=== PATIENT | female | born 1990 | race Caucasian/White ===

== ENCOUNTER 2019-04-14 15:34 | Emergency (ER) | payer OTHER ==
[~2019-04-14] VITALS: Ht 167.6 cm; Wt 74.8 kg
--- OUTSIDE RECORDS SUMMARY | ~2019-04-14 | XMS ---
Demographics + + + | Address | [address] | | | [address] | | | [place] [address] | + + + | Preferred Language | Unknown | + + + | Marital Status | Unknown | + + + | Voodoo Affiliation | Unknown | + + + | Race | Unknown | + + + | Ethnic Group | Unknown | + + + Author + + + | Author | [facility] | + + + | Organization | [facility] | + + + | Address | [address] | | | [place] [address] | + + + | Phone | | + + + Care Team Providers + + + + | Care Pressroom Worker Name | Role | Phone | + + + + Unavailable | Unavailable | + + + + PROBLEMS + + + + + + + + | Type | Condition | ICD9-CM | [id number] | Onset | Condition | SNOMED | | | | Code | Code | Dates | Status | Code | + + + + + + + + | Problem | Back pain | 724.5 | | | Active | 074499462 | + + + + + + + + | Problem | Sprain of | 845.00 | | | Active | 86904531 | | | ankle NOS | | | | | | + + + + + + + + | Problem | SHOULDER | 726.2 | | | Active | 046900854 | | | REGION DIS | | | | | | | | NEC | | | | | | + + + + + + + + | Assessment | Mastitis | N61.0 | | 04 Apr, | Active | 21433609 | | | | | | 2017 | | | + + + + + + + + | Problem | Asthma | | J45.909 | | Active | 06728103 | | | with | | | | | | | | bronchitis | | | | | | + + + + + + + + | Problem | Asthma | 493.90 | | | Active | 299151924 | + + + + + + + + | Problem | Cephalgia | 784.0 | | | Active | 82837518 | + + + + + + + + | Problem | CELLULITIS | 682.9 | | | Active | 935998267 | | | NOS | | | | | | + + + + + + + + | Problem | Low back | 724.2 | | | Active | 824359702 | | | pain | | | | | | + + + + + + + + | Problem | Sciatica | 724.3 | | | Active | 37492191 | + + + + + + + + ALLERGIES + + + + +--------+ | Substance | Reaction | Event Type | Date | Status | + + + + +--------+ | metals | break outs | Non Drug | Aug, | Active | | | | Allergy | | | + + + + +--------+ SOCIAL HISTORY No smoking Hx information available PLAN OF CARE VITAL SIGNS + + + + | Height | 65 in | 2016-08-22 | + + + + | Weight | 193.3 lbs | 2016-08-22 | + + + + | BMI | 32.16 kg/m2 | 2016-08-22 | + + + + | Temperature | 97.6 degrees Fahrenheit | 2016-08-22 | + + + + | Heart Rate | 69 /min | 2016-08-22 | + + + + | Blood pressure systolic | 112 mm Hg | 2016-08-22 | + + + + | Blood pressure diastolic | 74 mm Hg | 2016-08-22 | + + + + MEDICATIONS + + + + + + + +--------+ | Medicati | Instruct | Dosage | Frequenc | Start | End Date | Duration | Status | | on | ions | | y | Date | | | | + + + + + + + +--------+ | Albutero | Inhalati | 2 puffs | | 27 Apr, | | 1 | Active | | l | on tid x | as | | 2014 | | dose(s) | | | Sulfate | 3 days | needed | | | | | | | HFA 108 | then tid | | | | | | | | (90 | prn | | | | | | | | Base) | | | | | | | | | MCG/ACT | | | | | | | | + + + + + + + +--------+ | Bactrim | Orally | 1 tablet | 12h | 04 Apr, | 14 Apr, | 10 | Active | | DS | bid | | | 2017 | 2017 | day(s) | | | 800-160 | | | | | | | | | MG | | | | | | | | + + + + + + + +--------+ | Suboxone | | | | | | | Active | + + + + + + + +--------+ | Gabapent | | | | | | | Active | | in | | | | | | | | + + + + + + + +--------+ RESULTS No Results PROCEDURES + + + + + | Procedure | Date Ordered | Related Diagnosis | Body Site | + + + + + | Est Level III | August 22, 2016 | | | | Intermediate | | | | + + + + + IMMUNIZATIONS No Known Immunizations"
--- OUTSIDE RECORDS SUMMARY | ~2019-04-14 | XMS ---
Demographics + + + | Address | [address] | | | [address] | | | [place] [address] | + + + | Preferred Language | Unknown | + + + | Marital Status | Unknown | + + + | Muslim Affiliation | Unknown | + + + | Race | Unknown | + + + | Ethnic Group | Unknown | + + + Author + + + | Author | [facility] | + + + | Organization | [facility] | + + + | Address | [address] | | | [place] [address] | + + + | Phone | | + + + Care Team Providers + + + + | Care Sail Maker Name | Role | Phone | + + + + Unavailable | Unavailable | + + + + PROBLEMS +---------+ + + +--------+ + + | Type | Condition | ICD9-CM | [id number] | Onset | Condition | SNOMED | | | | Code | Code | Dates | Status | Code | +---------+ + + +--------+ + + | Problem | Back pain | 724.5 | | | Active | [id number] | +---------+ + + +--------+ + + | Problem | Sprain of | 845.00 | | | Active | 22230813 | | | ankle NOS | | | | | | +---------+ + + +--------+ + + | Problem | SHOULDER | 726.2 | | | Active | 909547999 | | | REGION DIS | | | | | | | | NEC | | | | | | +---------+ + + +--------+ + + | Problem | Asthma | | J45.909 | | Active | 30875776 | | | with | | | | | | | | bronchitis | | | | | | +---------+ + + +--------+ + + | Problem | Asthma | 493.90 | | | Active | 284830831 | +---------+ + + +--------+ + + | Problem | Cephalgia | 784.0 | | | Active | 43768398 | +---------+ + + +--------+ + + | Problem | CELLULITIS | 682.9 | | | Active | 814363742 | | | NOS | | | | | | +---------+ + + +--------+ + + | Problem | Low back | 724.2 | | | Active | 805367333 | | | pain | | | | | | +---------+ + + +--------+ + + | Problem | Sciatica | 724.3 | | | Active | 96613738 | +---------+ + + +--------+ + + ALLERGIES + + + + +--------+ | Substance | Reaction | Event Type | Date | Status | + + + + +--------+ | metals | break outs | Non Drug | Dec, | Active | | | | Allergy | | | + + + + +--------+ SOCIAL HISTORY Never Assessed PLAN OF CARE + +---------+ | Activity | Details | + +---------+ +---+ | | +---+ + + + | Follow Up | prn Reason:null | + + + VITAL SIGNS + + + + | Height | 65 in | 2017-01-03 | + + + + | Weight | 186.6 lbs | 2017-01-03 | + + + + | BMI | 31.05 kg/m2 | 2017-01-03 | + + + + | Temperature | 98.5 degrees Fahrenheit | 2017-01-03 | + + + + | Heart Rate | 112 /min | 2017-01-03 | + + + + | Blood pressure systolic | 146 mm Hg | 2017-01-03 | + + + + | Blood pressure diastolic | 98 mm Hg | 2017-01-03 | + + + + MEDICATIONS + + + + +--------+ + +--------+ | Medicati | Instruct | Dosage | Frequenc | Start | End Date | Duration | Status | | on | ions | | y | Date | | | | + + + + +--------+ + +--------+ | NuvaRing | | 1 ring | | | | | Active | | | | | | | | | | | 0.12-0.0 | | | | | | | | | 15 | | | | | | | | | MG/24HR | | | | | | | | + + + + +--------+ + +--------+ | Cymbalta | Orally | 1 | 24h | | | 30 | Active | | 60 MG | Once a | capsule | | | | | | | | day | | | | | | | + + + + +--------+ + +--------+ | Suboxone | Sublingu | 1 | 12h | | | | Active | | 8-2 MG | al twice | applicat | | | | | | | | a day | ion | | | | | | | | | under | | | | | | | | | the | | | | | | | | | tongue | | | | | | | | | and | | | | | | | | | allow to | | | | | | | | | | | | | | | | | | dissolve | | | | | | + + + + +--------+ + +--------+ | Gabapent | Orally | 2 | 8h | | | 30 | Active | | in 300 | Three | Capsules | | | | | | | MG | times a | | | | | | | | | day | | | | | | | + + + + +--------+ + +--------+ RESULTS + +--------+ + + | Name | Result | Date | Reference Range | + +--------+ + + | Sedimentation | | 2017-01-03 | | | Rate-Westergren | | | | + +--------+ + + | Sedimentation | | | | | Rate-Westergren | | | | + +--------+ + + | Comp. Metabolic | | 2017-01-03 | | | Panel (14) | | | | + +--------+ + + | Calcium, Serum | | | | + +--------+ + + | Glucose, Serum | | | | + +--------+ + + | BUN | | | | + +--------+ + + | Protein, Total, | | | | | Serum | | | | + +--------+ + + | Albumin, Serum | | | | + +--------+ + + | Bilirubin, Total | | | | + +--------+ + + | Alkaline | | | | | Phosphatase, S | | | | + +--------+ + + | AST (SGOT) | | | | + +--------+ + + | Potassium, Serum | | | | + +--------+ + + | Sodium, Serum | | | | + +--------+ + + | Chloride, Serum | | | | + +--------+ + + | Creatinine, Serum | | | | + +--------+ + + | ALT (SGPT) | | | | + +--------+ + + | Carbon Dioxide, | | | | | Total | | | | + +--------+ + + | BUN/Creatinine | | | | | Ratio | | | | + +--------+ + + | Globulin, Total | | | | + +--------+ + + | A/G Ratio | | | | + +--------+ + + | TSH, 3rd Generation | | 2017-01-03 | | + +--------+ + + | TSH, 3RD GENERATION | | | | + +--------+ + + | CBC | | 2017-01-03 | | + +--------+ + + | WBC | | | | + +--------+ + + | RBC | | | | + +--------+ + + | HEMOGLOBIN | | | | + +--------+ + + | HEMATOCRIT | | | | + +--------+ + + | MCV | | | | + +--------+ + + | MCH | | | | + +--------+ + + | MCHC | | | | + +--------+ + + | RDW | | | | + +--------+ + + | LYMPHOCYTES | | | | + +--------+ + + | NEUTROPHILS | | | | + +--------+ + + | BANDS | | | | + +--------+ + + | MONOCYTES | | | | + +--------+ + + | EOSINOPHILS | | | | + +--------+ + + | BASOPHILS | | | | + +--------+ + + | OTHER | | | | + +--------+ + + | PLATELET COUNT | | | | + +--------+ + + | Neurontin Level | | 2017-01-03 | | + +--------+ + + PROCEDURES No Known procedures IMMUNIZATIONS No Known Immunizations MEDICAL (GENERAL) HISTORY + + +------+ | Type | Description | Date | + + +------+ | Medical History | generally healthy | | + + +------+ | Medical History | post depression | | + + +------+ | Medical History | 12/20/2011 - collapsing right | | | | ovarian cyst. | | + + +------+ | Medical History | depression | | + + +------+ | Surgical History | tonsillectomy | | + + +------+ | Surgical History | adenoidectomy | | + + +------+ | Surgical History | hand surgery | | + + +------+ | Surgical History | tube in ears | | + + +------+ | Surgical History | appendectomy | | + + +------+ | Surgical History | gall bladder | | + + +------+ | Surgical History | D and C | | + + +------+ | Surgical History | c section | 2016 | + + +------+ | Surgical History | tubal ligation | 2016 | + + +------+"
--- OUTSIDE RECORDS SUMMARY | ~2019-04-14 | XMS | Encounter Summary ---
Demographics + + + | Address | [address] | | | [place] [address] | + + + | Home Phone | | + + + | Preferred Language | Unknown | + + + | Marital Status | Single | + + + | Hindu Affiliation | Unknown | + + + | Race | Unknown | + + + | Ethnic Group | Unknown | + + + Author + + + | Author | [facility] | | | and [place] | + + + | Organization | [facility] | | | and [place] | + + + | Address | Unknown | + + + | Phone | Unavailable | + + + Support + + + + + | Name | Relationship | Address | Phone | + + + + + | Florencio Lowry | ECON | [address] | | | | | [address], [place] | | | | | [address] | | + + + + + | Jose Luis Dent | ECON | [address] | | | | | [place], | | | | | [place] [address] | | + + + + + Care Team Providers + +------+ + | Care Tunnel Mucker Name | Role | Phone | + +------+ + PCP | Unavailable | + +------+ + Encounter Details +--------+ + + + + | Date | Type | Department | Care Team | Description | +--------+ + + + + | 05/13/ | Hospital | [facility] | Hallie Doan | | | 2012 | Encounter | [facility] | Sarika Sharma MD [address] | | | | | CENTER [address] | [facility] | | | | | [place], [place] | [place] [address] | | | | | [address] | [phone] | | | | | [phone] | Maria L Deng | | | | | | DO [facility] TE | | | | | | [place], [place] | | | | | | [phone] | | | | | | | | +--------+ + + + + Social History + +-------+ +--------+------+ | Tobacco Use | Types | Packs/Day | Years | Date | | | | | Used | | + +-------+ +--------+------+ | Never Assessed | | | | | + +-------+ +--------+------+ + + + | Sex Assigned at | Date Recorded | | | | + + + | Not on file | | + + + + + + + | Job Start Date | Occupation | Industry | + + + + | Not on file | Not on file | Not on file | + + + + + + + + | Travel History | Travel Start | Travel End | + + + + + + | No recent travel history available. | + + documented as of this encounter Plan of Treatment Not on filedocumented as of this encounter Procedures + +--------+ + + + | Procedure Name | Priori | Date/Time | Associated Diagnosis | Comments | | | ty | | | | + +--------+ + + + | US OB < 14 WEEKS W | Routin | 05/14/2013 | | Results for this | | TRANSVAGINAL | e | 9:50 AM | | procedure are in the | | | | PST | | results section. | + +--------+ + + + | ABO RH | Routin | 05/13/2013 | | Results for this | | | e | 6:46 PM | | procedure are in the | | | | PST | | results section. | + +--------+ + + + | CBC WITH | Routin | 05/13/2013 | | Results for this | | DIFFERENTIAL | e | 6:46 PM | | procedure are in the | | | | PST | | results section. | + +--------+ + + + | HCG, SERUM, QUANT | Routin | 05/13/2013 | | Results for this | | | e | 6:46 PM | | procedure are in the | | | | PST | | results section. | + +--------+ + + + documented in this encounter Results US OB < 14 Weeks W Transvaginal (05/14/2013 9:50 AM PST) + + | Specimen | + + | | + + + + + | Narrative | Performed At | + + + | [facility] | [place] | | Department [address] [place] | [facility] | | [ rep [address]] [ rep [facility] | | st zip] Signed | - IMAGING | | | | | Patient Name: OLYFRED BROWNING Physician: | | | CHATA : 1990 Age: 22 Sex: F Unit #: [id number] | | | Exam Date: 05/13/13 Location: ER | | | Report #: [id number] Page: | | | %(RAD)RES..mtdd.print.filter("pg") of %(RAD) | | | RES..mtdd.print.filter("tpg") | | | | | | Accession Number: [id number] | | | OB ULTRASOUND, 05/14/2013 CLINICAL HISTORY: EVALUATE FOR | | | ECTOPIC , SPOTTING, CRAMPING, CLOTS. COMPARISON: | | | None. PROTOCOL: Grayscale and Doppler images of the | | | pelvis with transabdominal and transvaginal imaging. | | | FINDINGS: By dates, the gestational age is 6 weeks, 0 days. | | | The uterus measures 9.6 x 5.2 x 4.8 cm. Parenchyma is normal. | | | Within the uterus, an apparent twin gestation is present. A | | | smaller, inferior sac is observed that demonstrates a mildly irregular | | | contour without a definite decidual sac sign. A yolk sac is | | | observed. More superiorly is a more normal appearing gestational | | | sac with yolk sac observed. There are a small amount of blood products | | | around the more inferior sac. The more superior sac | | | measures 0.68 cm, which would correspond a mean age of 5 weeks, | | | 2 days. A small yolk sac is present that measures around 0.1 cm. | | | No definite amnion is seen. pole is not clearly identified | | | at this time and could be too early. For the smaller | | | more inferior sac, mean sac diameter is 0.40 cm, which would | | | correspond to a mean age of 4 weeks, 6 days. A yolk sac is | | | observed. No definite amnion is seen. No pole is | | | identified and could be too early. The right ovary is 3.1 | | | x 2.1 x 2.6 cm. There is a hypoechoic vascular rimmed round | | | structure that likely represents a corpus luteum. The | | | left ovary is 1.9 x 2.7 x 1.6 cm and appears normal. | | | There is a mild amount of simple free fluid within the cul-de-sac. | | | IMPRESSION: 1. APPARENT TWIN GESTATION WITH A | | | SMALLER SOMEWHAT IRREGULAR SAC AND A MORE SUPERIOR, MORE NORMAL | | | APPEARING SAC. YOLK SACS ARE IDENTIFIED WITHIN BOTH GESTATIONAL | | | SACS. HOWEVER, NO POLES ARE IDENTIFIED ON THE CURRENT | | | EXAMINATION. THIS COULD BE TOO EARLY, AND FOLLOWUP ULTRASOUND | | | IMAGING IS RECOMMENDED. AVERAGE ULTRASOUND AGE FOR THE LARGER SAC | | | IS 5 WEEKS, 2 DAYS AND FOR THE SMALLER SAC IS 4 WEEKS, 6 DAYS. | | | 2. CORPUS LUTEUM OF RIGHT OVARY. COMMENT: A | | | preliminary report was sent to the ER by the park guide. | | | Dictated Date/Time: 05/14/2013 09:50 Transcribed Date/Time: | | | 05/14/2013 10:54 Salvage Machine Operator: | | | <<Signature on File>> | | | Brandon | | | MD David05/14/13 [id number] <Electronically signed by Brandon Hernandez MD> | | | Brandon Hernandez MD 05/14/13 [id number] Salvage Machine Operator: Webjuanax | | | Gyeenrcypyetu65/25/13 1054 | | + + + + + + + + | Performing | Address | City/State/Zipcode | Phone Number | | Organization | | | | + + + + + | [facility] | [address] | [place] | [phone] | | [facility] | | [address] | | | - IMAGING | | | | + + + + + CBC with Differential (05/13/2013 6:46 PM PST) + + + + + + | Component | Value | Ref Range | Performed | Pathologist | | | | | At | Signature | + + + + + + | MANUAL | NO | | [facility] | | | [facility] | | [facility] | | | [facility] ? | | | [facility] | | | | | | CENTER - | | | | | | LABORATORY | | + + + + + + | WBC | 8.6 | 4.0 - 11.0 K/uL | [facility] | | | | | | [facility] | | | | | | MEDICAL | | | | | | CENTER - | | | | | | LABORATORY | | + + + + + + | RBC | 4.44 | 3.70 - 5.20 | [facility] | | | | | M/uL | [facility] | | | | | | MEDICAL | | | | | | CENTER - | | | | | | LABORATORY | | + + + + + + | Hemoglobin | 14.5 | 11.5 - 16.0 | [facility] | | | | | gm/dL | [facility] | | | | | | MEDICAL | | | | | | CENTER - | | | | | | LABORATORY | | + + + + + + | Hematocrit | 42.4 | 34.0 - 47.0 % | [facility] | | | | | | [facility] | | | | | | MEDICAL | | | | | | CENTER - | | | | | | LABORATORY | | + + + + + + | MCV | 95.4 | 83.0 - 101.0 fL | [facility] | | | | | | [facility] | | | | | | MEDICAL | | | | | | CENTER - | | | | | | LABORATORY | | + + + + + + | MCH | 32.7 | 28.0 - 35.0 pg | [facility] | | | | | | [facility] | | | | | | MEDICAL | | | | | | CENTER - | | | | | | LABORATORY | | + + + + + + | MCHC | 34.3 | 32.0 - 36.0 | [facility] | | | | | g/dL | [facility] | | | | | | MEDICAL | | | | | | CENTER - | | | | | | LABORATORY | | + + + + + + | RDW-CV | 11.8 | <15.0 % | [facility] | | | | | | [facility] | | | | | | MEDICAL | | | | | | CENTER - | | | | | | LABORATORY | | + + + + + + | Platelet | 231 | 140 - 440 K/uL | [facility] | | | Count | | | [facility] | | | | | | MEDICAL | | | | | | CENTER - | | | | | | LABORATORY | | + + + + + + | % | 78.1 | 45 - 82 % | [facility] | | | Neutrophils | | | [facility] | | | | | | MEDICAL | | | | | | CENTER - | | | | | | LABORATORY | | + + + + + + | % | 19.6 (L) | 20 - 45 % | [facility] | | | Lymphocytes | | | [facility] | | | | | | MEDICAL | | | | | | CENTER - | | | | | | LABORATORY | | + + + + + + | % Monocytes | 2.3 (L) | 4 - 12 % | [facility] | | | | | | [facility] | | | | | | MEDICAL | | | | | | CENTER - | | | | | | LABORATORY | | + + + + + + | Absolute | 6.7 | 1.8 - 8.5 K/uL | [facility] | | | Neutrophils | | | [facility] | | | | | | MEDICAL | | | | | | CENTER - | | | | | | LABORATORY | | + + + + + + | Absolute | 1.7 | 0.6 - 3.2 K/uL | [facility] | | | Lymphocytes | | | [facility] | | | | | | MEDICAL | | | | | | CENTER - | | | | | | LABORATORY | | + + + + + + | Absolute | 0.2 | 0.0 - 1.0 K/uL | [facility] | | | Monocytes | | | [facility] | | | | | | MEDICAL | | | | | | CENTER - | | | | | | LABORATORY | | + + + + + + + + | Specimen | + + | | + + + + + + + | Performing | Address | City/State/Zipcode | Phone Number | | Organization | | | | + + + + + | [facility] | [address] | [place] | [phone] | | [facility] | | [address] | | | - LABORATORY | | | | + + + + + | [facility] | [address] | [place], [place] | | | [facility] | | [address] | | | - LABORATORY | | | | + + + + + ABO Rh (05/13/2013 6:46 PM PST) + +-------+ + + + | Component | Value | Ref Range | Performed | Pathologist | | | | | At | Signature | + +-------+ + + + | ABO | OP | | [facility] | | | | | | [facility] | | | | | | MEDICAL | | | | | | CENTER - | | | | | | LABORATORY | | + +-------+ + + + + + | Specimen | + + | | + + + + + + + | Performing | Address | City/State/Zipcode | Phone Number | | Organization | | | | + + + + + | [facility] | [address] | [place], [place] | [phone] | | [facility] | | [address] | | | - LABORATORY | | | | + + + + + | [facility] | [address] | [place], [place] | | | [facility] | | [address] | | | - LABORATORY | | | | + + + + + HCG, Serum, Quant (05/13/2013 6:46 PM PST) + + + + + + | Component | Value | Ref Range | Performed | Pathologist | | | | | At | Signature | + + + + + + | hCG Quant, | 6,026 (H)Comment: This | <0.5 - 5.0 | [facility] | | | Serum | value is calculated from | mIU/mL | [facility] | | | | a diluted sample, | | MEDICAL | | | | allowing measurement | | CENTER - | | | | within the linearity of | | LABORATORY | | | | the assay.[facility] | | | | | | RANGE: NON- | | | | | | FEMALE <0.5-5.0 mIU/mL | | | | | | | | | | | | | | | | | | B-hCG | | | | | | LEVEL | | | | | | Gestational Age | | | | | | Expected hCG Values | | | | | | | | | | | | | | | | | | | | | | | | | | | | | | 0.2-1 week | | | | | | 5-50 | | | | | | mIU/mL | | | | | | 1-2 weeks | | | | | | | | | | | | 50-500 mIU/mL | | | | | | 2-3 | | | | | | weeks | | | | | | 100-5,000 mIU/mL | | | | | | 3-4 | | | | | | weeks | | | | | | 500-10,000 mIU/mL | | | | | | 4-5 | | | | | | weeks | | | | | | 1,000-50,000 mIU/mL | | | | | | | | | | | | 5-6 weeks | | | | | | 10,000-100,000 mIU/mL | | | | | | | | | | | | 6-8 weeks | | | | | | 15,000-200,000 mIU/mL | | | | | | | | | | | | 2-3 months | | | | | | 10,000-100,000 mIU/mL | | | | | | Testing performed on | | | | | | the Spiration | | | | | | Access Analyzer. | | | | + + + + + + + + | Specimen | + + | | + + + + + + + | Performing | Address | City/State/Zipcode | Phone Number | | Organization | | | | + + + + + | [facility] | [address] | [place] | [phone] | | [facility] | | [address] | | | - LABORATORY | | | | + + + + + | [facility] | [address] | [place] | | | [facility] | | [address] | | | - LABORATORY | | | | + + + + + documented in this encounter Visit Diagnoses Not on filedocumented in this encounter
--- OUTSIDE RECORDS SUMMARY | ~2019-04-14 | XMS | Clinical Summary ---
Demographics + + + | Address | [address] | | | [place] [address] | + + + | Home Phone | | + + + | Preferred Language | Unknown | + + + | Marital Status | Single | + + + | Yarsanism Affiliation | Unknown | + + + | Race | Unknown | + + + | Ethnic Group | Unknown | + + + Author + + + | Author | [facility] | | | and [place] | + + + | Organization | [facility] | | | and [place] | + + + | Address | Unknown | + + + | Phone | Unavailable | + + + Support + + + + + | Name | Relationship | Address | Phone | + + + + + | Florencio Lowry | ECON | [address] | | | | | [address], [place] | | | | | [address] | | + + + + + | Jose Luis Dent | ECON | [address] | | | | | [place], | | | | | [place] [address] | | + + + + + Care Team Providers + +------+ + | Care Rn Informatics Name | Role | Phone | + +------+ + PCP | Unavailable | + +------+ + Allergies Not on File Medications Not on file Active Problems Not on file Social History + +-------+ +--------+------+ | Tobacco [...] recent travel history available. | + + Last Filed Vital Signs Not on file Plan of Treatment + + + + + | Health Maintenance | Due Date | Last Done | Comments | + + + + + | Vaccine: | | | | | Dtap/Tdap/Td (1 - | 1 | | | | Tdap) | | | | + + + + + | Cervical Cancer | | | | | Screening (Pap) | 3 | | | + + + + + | Vaccine: Influenza | | | | | (#1) | 9 | | | + + + + + Results Not on filefrom Last 3 Months Insurance + +--------+ +--------+ +---------+--------+ | Payer | Benefi | Subscriber | Effect | Phone | Address | Type | | | t Plan | ID | [employer] | | | | | | / | | Dates | | | | | | Group | | | | | | + +--------+ +--------+ +---------+--------+ | [employer] | [employer] | [id number] | 05/13/ | [phone] | | [employer] | | MEDICAID HMO | HEALTH | | 2013-P | 1 | | id | | | MDCD | | resent | | | | | | [place] | | | | | | + +--------+ +--------+ +---------+--------+ + +--------+ +--------+ + + | Guarantor Name | Accoun | Relation to | Date | Phone | Billing Address | | | t Type | Patient | of | | | | | | | | | | + +--------+ +--------+ + + | Yessica Dent | Person | Self | [birth year] | [address] | | | al/[place] | | 1991 | [phone] | [address] [place], | | | [place] | | | [address] (Home) | [place] [address] | + +--------+ +--------+ + +"
--- OUTSIDE RECORDS SUMMARY | ~2019-04-14 | XMS ---
Demographics + + + | Address | [address] | | [address] | | | [place] [address] | + + + | Preferred Language | Unknown | + + + | Marital Status | Unknown | + + + | Yazdanism Affiliation | Unknown | + + + | Race | Unknown | + + + | Ethnic Group | Unknown | + + + Author + + + | Author | [facility] | + + + | Organization | [facility] | + + + | Address | [address] | | | [place] [address] | + + + | Phone | | + + + Care Team Providers + + + + | Care Live Ammunition Inspector Name | Role | Phone | + + + + Unavailable | Unavailable | + + + + PROBLEMS +---------+ + + +--------+ + + | Type | Condition | ICD9-CM | [id number] | Onset | Condition | SNOMED | | | | Code | Code | Dates | Status | Code | +---------+ + + +--------+ + + | Problem | Back pain | 724.5 | | | Active | 680217656 | +---------+ + + +--------+ + + | Problem | Sprain of | 845.00 | | | Active | 32302258 | | | ankle NOS | | | | | | +---------+ + + +--------+ + + | Problem | SHOULDER | 726.2 | | | Active | [id number] | | | REGION DIS | | | | | | | | NEC | | | | | | +---------+ + + +--------+ + + | Problem | Asthma | | J45.909 | | Active | 63367459 | | | with | | | | | | | | bronchitis | | | | | | +---------+ + + +--------+ + + | Problem | Asthma | 493.90 | | | Active | 714356659 | +---------+ + + +--------+ + + | Problem | Cephalgia | 784.0 | | | Active | 93339341 | +---------+ + + +--------+ + + | Problem | CELLULITIS | 682.9 | | | Active | 706847638 | | | NOS | | | | | | +---------+ + + +--------+ + + | Problem | Low back | 724.2 | | | Active | 047679373 | | | pain | | | | | | +---------+ + + +--------+ + + | Problem | Sciatica | 724.3 | | | Active | 78206577 | +---------+ + + +--------+ + + ALLERGIES Unknown Allergies SOCIAL HISTORY No smoking Hx information available PLAN OF CARE VITAL SIGNS MEDICATIONS Unknown Medications RESULTS No Results PROCEDURES No Known procedures IMMUNIZATIONS No Known Immunizations"
--- OUTSIDE RECORDS SUMMARY | ~2019-04-14 | XMS | Encounter Summary ---
Demographics + + + | Address | [address] | | | [place] [address] | + + + | Home Phone | | + + + | Preferred Language | Unknown | + + + | Marital Status | Single | + + + | Jehovah'S Witness Affiliation | Unknown | + + + | Race | Unknown | + + + | Ethnic Group | Unknown | + + + Author + + + | Author | [facility] | | | and [place] | + + + | Organization | [facility] | | | and [...] [address], [place] | | | | | [address] | | + + + + + | Jose Luis Dent | ECON | [address] | | | | | [place], | | | | | [place] [address] | | + + + + + Care Team Providers + +------+ + | Care Bead Forming Machine Set Up Operator Name | Role | Phone | + +------+ + PCP | Unavailable | + +------+ + Encounter Details +--------+ + + + + | Date | Type | Department | Care Team | Description | +--------+ + + + + | 05/13/ | Hospital | [facility] | Hallie Doan | | | 2012 | Encounter | MED [facility] EM[facility]ENCY | Sarika Sharma MD [address] | | | | | CENTER [address] | [facility] | | | | | [place], [place] | [place] [address] | | | | | [address] | [phone] | | | | | [phone] | Maria L Deng | | | | | | DO [facility] TE | | | | | | [place], [place] | | | | | | [phone] | | | | | | | [...] Performed At | + + + | [facility] | [place] | | Department [address] | [facility] | | [ rep [address]] [ rep [facility] | | st zip] Signed | - IMAGING | | | | | Patient Name: OLYFRED BROWNING Physician: | | | CHATA : 1990 Age: 22 Sex: F Unit #: [id number] | | | Exam Date: 05/13/13 Location: ER | | | Report #: [id number] Page: | | | %(RAD)RES..mtdd.print.filter("pg") of %(RAD) | | | RES..mtdd.print.filter("tpg") | | | | | | Accession Number: [id number] | | | OB ULTRASOUND, 05/14/2013 CLINICAL [...] was sent to the ER by the patent agent. | | | Dictated Date/Time: 05/14/2013 09:50 Transcribed Date/Time: | | | 05/14/2013 10:54 Incinerator Plant General Supervisor: | | | <<Signature on File>> | | | Brandon | | | MD David05/14/13 2914 <Electronically signed by Brandon Hernandez MD> | | | Brandon Hernandez MD 05/14/13 8030 Incinerator Plant General Supervisor: Webjuanax | | | Gntrffnijrega92/25/13 1054 | | + + + + + + + + | Performing | Address | City/State/Zipcode | Phone Number | | Organization | | | | + + + + + | [facility] | [address] | [place] | [phone] | | [facility] | | [address] | | | - IMAGING | | [...] | | Monocytes | | | [facility] | | [address] | [place] | [phone] | | [facility] | | [address] | | | - LABORATORY | | | | + + + + + | [facility] | [address] | [place], [place] | | | [facility] | | [address] | | | - LABORATORY | | [...] + | [facility] | [address] | [place], [place] | [phone] | | [facility] | | [address] | | | - LABORATORY | | | | + + + + + | [facility] | [address] | [place], [place] | | | [facility] | | [address] | | | - LABORATORY | | [...] | | | | | | the [place] | | | | | | Access Analyzer. | | | | + + + + + + + + | Specimen | + + | | + + + + + + + | Performing | Address | City/State/Zipcode | Phone Number | | Organization | | | | + + + + + | [facility] | [address] | [place] | [phone] | | [facility] | | [address] | | | - LABORATORY | | | | + + + + + | [facility] | [address] | [place] | | | [facility] | | [address] | | | - LABORATORY | | | | + + + + + documented in this encounter Visit Diagnoses Not on filedocumented in this encounter
--- OUTSIDE RECORDS SUMMARY | ~2019-04-14 | XMS | Clinical Summary ---
Demographics + + + | Address | [address] | | | [place] [address] | + + + | Home Phone | | + + + | Preferred Language | Unknown | + + + | Marital Status | Single | + + + | Advent Affiliation | Unknown | + + + | Race | Unknown | + + + | Ethnic Group | Unknown | + + + Author + + + | Author | [facility] | | | and [place] | + + + | Organization | [facility] | | | [...] [address], [place] | | | | | [address] | | + + + + + | Jose Luis Detn | ECON | [address] | | | | | [place], | | | | | [place] [address] | | + + + + + Care Team Providers + +------+ + | Care Clinical Research Nurse Name | Role | Phone | + [...] | [employer] | [employer] | [id number] | 05/13/ | [phone] | | [employer] | | MEDICAID HMO [...] | | | [address] (Home) | [place] [address] | + +--------+ +--------+ + +"
[~2019-04-14 15:34] MED LIST: ANAFRANIL25 MG PO; GABAPENTIN300 MG PO; MOBIC7.5 MG PO; NIFEDICAL XL30 MG PO; NORCO 5-325 TA1 EACH PO; OXYCODONE-ACET1 EAC1 PO; PNV PRENATAL P1 EACH PO; TRAMADOL HCL50 MG PO; TYLENOL EXTRA500 MG PO; TYLENOL325 MG PO; ULTRAM50 MG PO; VICODIN ES 7.51 EAC1 PO; VITAMIN D1000 UNI1 PO; ZANTAC 7575 MG; ZOFRAN ODT4 MG PO
[2019-04-14] MEDS ORDERED: BACTRIM DS TAB1 EACH PO ×2 (15:50→17:05)
[2019-04-14] MEDS ORDERED: AUGMENTIN 875-1 EACH PO (17:03)
== END 2019-04-14 17:18 | disposition home or self-care (01) ==
LOC: ED 15:34
DX: L03.311 Cellulitis of abdominal wall (principal); F17.200 Nicotine dependence, unspecified, uncomplicated
CPT/HCPCS: 99283-25

== ENCOUNTER 2020-06-22 13:24 | Emergency (ER) | payer OTHER ==
[~2020-06-22] VITALS: Ht 165.1 cm; Wt 78.9 kg
[~2020-06-22 13:24] MED LIST changes: +AUGMENTIN 875-1 EACH PO; +BACTRIM DS TAB1 EACH PO
[2020-06-22] MEDS ORDERED: CEPHALEXIN500 MG PO (14:21)
[2020-06-22] MEDS ORDERED: NAPROSYN500 MG PO (14:21)
== END 2020-06-22 14:45 | disposition home or self-care (01) ==
LOC: ED 13:24
DX: S61.412A Laceration without foreign body of left hand, initial encounter (principal); W26.8XXA Contact with other sharp object(s), not elsewhere classified, initial encounter; F17.200 Nicotine dependence, unspecified, uncomplicated
CPT/HCPCS: 12044; 99282-25

== ENCOUNTER 2020-12-02 15:28 | Emergency (ER) | payer OTHER ==
[~2020-12-02] VITALS: Ht 165.1 cm; Wt 69.4 kg
[~2020-12-02 15:28] MED LIST changes: +CEPHALEXIN500 MG PO; +NAPROSYN500 MG PO
--- OUTSIDE RECORDS SUMMARY | 2020-12-02 15:30 | XMS ---
PreManage Notification: FRED MARTINEZ Security Diamond Picker Events No recent Security Events currently on file [facility] There are no care providers on record at this time. Loco has no Care Guidelines for this patient. Ramona VISIT COUNT (12 MO.) 2 ZENIA Allen TOTAL 2 NOTE: Visits indicate total known visits. ED/UCC VISIT TRACKING (12 MO.) 12/02/2020 15:29 [facility] [place] TYPE: Emergency COMPLAINT: - POSS HEAT STROKE 06/22/2020 13:24 [facility] [place] TYPE: Emergency COMPLAINT: - L HAND LACERATION DIAGNOSES: - Laceration without foreign body of left hand, initial encounter - Nicotine dependence, unspecified, uncomplicated - Contact with other sharp object(s), not elsewhere classified, initial encounter INPATIENT VISIT TRACKING (12 MO.) No inpatient visits to display in this time frame [id number]
[2020-12-02] MEDS ORDERED: BUPRENORPHIN-N1 EACH SL (15:50)
[2020-12-02] MEDS ORDERED: ALPRAZOLAM1 MG PO (15:51)
[2020-12-02] MEDS ORDERED: ONDANSETRON ODT4 MG PO (18:31)
--- NOTE | 2020-12-03 07:11 | EKG ---
[facility] [address] [facility] [place], [place] [address] Signed Normal sinus rhythm Normal ECG No previous ECGs available Confirmed by MARIAJOSE THIBODEAUX MD ([id number]) on 12/03/2020 7:10:49 AM Electronically Signed By: MARIAJOSE THIBODEAUX MD 12/03/20 0711 PATIENT NAME: FRED MARTINEZ Electrocardiogram DATE OF : [birth year] PHYSICIAN: MARIAJOSE THIBODEAUX MD REPORT #: [id number] REPORT IS CONFIDENTIAL AND NOT TO BE RELEASED WITHOUT AUTHORIZATION
== END 2020-12-02 19:09 | disposition home or self-care (01) ==
LOC: ED 15:28
DX: R11.2 Nausea with vomiting, unspecified (principal); F17.200 Nicotine dependence, unspecified, uncomplicated
CPT/HCPCS: 80053; 85025; 93005; 93010; 99284-25; J7030

== ENCOUNTER 2021-10-25 07:38 | Emergency (ER) | payer OTHER ==
[~2021-10-25] VITALS: Ht 165.1 cm; Wt 78.9 kg
[~2021-10-25 07:38] MED LIST changes: +ALPRAZOLAM1 MG PO; +BUPRENORPHIN-N1 EACH SL; +ONDANSETRON ODT4 MG PO
--- OUTSIDE RECORDS SUMMARY | 2021-10-25 07:40 | XMS ---
PreManage Notification: FRED MARTINEZ Security Power Systems Engineer Events No recent Security Events currently on file CRITERIA MET - Group Notification - [facility] - 2 Visits in 30 Days - [facility] CARE PROVIDERS There are no care providers on record at this time. Loco has no Care Guidelines for this patient. Ramona [facility] (12 MO.) [facility] T[facility] 4 NOTE: Visits indicate total known visits. ED/UCC VISIT TRACKING (12 MO.) [facility] 07[facility] [place] [facility] COMPLAINT: - R THUMB SWELLING 10/23/2021 11:47 [facility] [place] TYPE: Emergency COMPLAINT: - SKIN PRONLEM 10/22/2021 17:53 [facility] [place] TYPE: Emergency COMPLAINT: - RT THUMB PAIN 12/02/2020 15:29 [facility] [place] TYPE: Emergency COMPLAINT: - POSS HEAT STROKE DIAGNOSES: - Nausea with vomiting, unspecified - Nicotine dependence, unspecified, uncomplicated INPATIENT VISIT TRACKING (12 MO.) No inpatient visits to display in this time frame [id number]
[2021-10-25] MEDS ORDERED: DOXYCYCLINE HY100 MG PO (09:09)
== END 2021-10-25 09:30 | disposition home or self-care (01) ==
LOC: ED 07:38
DX: L03.011 Cellulitis of right finger (principal); F17.200 Nicotine dependence, unspecified, uncomplicated; Z88.8 Allergy status to other drugs, medicaments and biological substances
CPT/HCPCS: 26011; 73140; 87070; 87075; 87205; 99283-25

== ENCOUNTER 2021-12-18 04:19 | Emergency (ER) | payer OTHER ==
[~2021-12-18] VITALS: Ht 167.6 cm; Wt 74.8 kg
[~2021-12-18 04:19] MED LIST changes: +DOXYCYCLINE HY100 MG PO
--- OUTSIDE RECORDS SUMMARY | 2021-12-18 04:20 | XMS ---
PreManage Notification: FRED MARTINEZ Security Commercial Lending Relationship Manager Events 1 event(s) in the past 18 months Most recent security events: Elopement at [facility] 10/23/2021 11:47 - Patient eloped before treatment completed. - Patient with suicidal and/or homicidal ideations eloped. - Patient eloped with IV in place. Details: PATIENT LWBS CRITERIA MET - Group Notification CARE PROVIDERS There are no care providers on record at this time. Loco has no Care Guidelines for this patient. E.D. VISIT COUNT (12 MO.) 4 [facility]. TOTAL 4 NOTE: Visits indicate total known visits. ED/C VISIT TRACKING (12 MO.) 12/18/2021 04:19 [facility] [place] TYPE: Emergency COMPLAINT: - ALTERED LOC 10/25/2021 07:39 [facility] [place] TYPE: Emergency COMPLAINT: - R THUMB SWELLING DIAGNOSES: - Cellulitis of right finger - Other specified disorders of the skin and subcutaneous tissue - Allergy status to other drugs, medicaments and biological substances - Nicotine dependence, unspecified, uncomplicated 10/23/2021 11:47 [facility] [place] TYPE: Emergency COMPLAINT: - SKIN PRONLEM 10/22/2021 17:53 [facility] [place] TYPE: Emergency COMPLAINT: - RT THUMB PAIN INPATIENT VISIT TRACKING (12 MO.) No inpatient visits to display in this time frame [id number]
[2021-12-18] MEDS ORDERED: NARCAN4 MG NAS (06:01)
== END 2021-12-18 06:14 | disposition left against medical advice (07) ==
LOC: ED 04:19
DX: T40.411A Poisoning by fentanyl or fentanyl analogs, accidental (unintentional), initial encounter (principal); F17.200 Nicotine dependence, unspecified, uncomplicated; Z88.1 Allergy status to other antibiotic agents; Z88.2 Allergy status to sulfonamides
CPT/HCPCS: 80053; 84703; 85025; 99284; G0480

== ENCOUNTER 2022-01-20 08:30 | Emergency (ER) | payer OTHER ==
[~2022-01-20] VITALS: Ht 167.6 cm; Wt 75.0 kg
[~2022-01-20 08:30] MED LIST changes: +NARCAN4 MG NAS
--- OUTSIDE RECORDS SUMMARY | 2022-01-20 08:38 | XMS ---
PreManage Notification: FRED SKAGGS Security Art Preparator Events 3 event(s) in the past 18 months Most recent security events: Elopement at [facility] 12/27/2021 20:57 - Patient eloped before treatment completed. - Patient with suicidal and/or homicidal ideations eloped. - Patient eloped with IV in place. Details: PATIENT LWBS Elopement at [facility] 12/18/2021 04:19 - Patient eloped before treatment completed. - Patient with suicidal and/or homicidal ideations eloped. - Patient eloped with IV in place. Details: PATIENT LEFT AMA Elopement at [facility] 10/23/2021 11:47 - Patient eloped before treatment completed. - Patient with suicidal and/or homicidal ideations eloped. - Patient eloped with IV in place. Details: PATIENT LW CRITERIA MET - [facility] - 2 Visits in 30 Days - Group Notification - 6 ED Visits in 6 Months CARE PROVIDERS There are no care providers on record at this time. Loco has no Care Guidelines for this patient. E.D. VISIT COUNT (12 MO.) 6 [facility]. TOTAL 6 NOTE: Visits indicate total known visits. ED/C VISIT TRACKING (12 MO.) 01/20/2022 08:31 [facility] [place] TYPE: Emergency COMPLAINT: - L RING FINGER INJURY 12/27/2021 20:57 [facility] [place] TYPE: Emergency COMPLAINT: - SKIN PROBLEM 12/18/2021 04:19 [facility] [place] TYPE: Emergency COMPLAINT: - ALTERED LOC DIAGNOSES: - Allergy status to other antibiotic agents - Nicotine dependence, unspecified, uncomplicated - Allergy status to sulfonamides - Poisoning by fentanyl or fentanyl analogs, accidental (unintentional), initial encounter 10/25/2021 07:39 [facility] [place] TYPE: Emergency COMPLAINT: - R THUMB SWELLING DIAGNOSES: - Nicotine dependence, unspecified, uncomplicated - Other specified disorders of the skin and subcutaneous tissue - Allergy status to other drugs, medicaments and biological substances - Cellulitis of right finger 10/23/2021 11:47 [facility] [place] TYPE: Emergency COMPLAINT: - SKIN PRONLEM 10/22/2021 17:53 [facility] [place] TYPE: Emergency COMPLAINT: - RT THUMB PAIN INPATIENT VISIT TRACKING (12 MO.) No inpatient visits to display in this time frame [id number]
== END 2022-01-20 09:30 | disposition home or self-care (01) ==
LOC: ED 08:30
DX: S62.635A Displaced fracture of distal phalanx of left ring finger, initial encounter for closed fracture (principal); J45.909 Unspecified asthma, uncomplicated; F17.200 Nicotine dependence, unspecified, uncomplicated; Z88.2 Allergy status to sulfonamides; Z88.8 Allergy status to other drugs, medicaments and biological substances; W23.0XXA Caught, crushed, jammed, or pinched between moving objects, initial encounter
CPT/HCPCS: 29125; 73140; 99283-25

== ENCOUNTER 2022-02-17 10:11 | Emergency (ER) | payer OTHER ==
[~2022-02-17] VITALS: Ht 167.6 cm; Wt 74.9 kg
--- OUTSIDE RECORDS SUMMARY | 2022-02-17 10:18 | XMS ---
PreManage Notification: FRED SKAGGS Security Drilling Field Professional Events 3 event(s) in the past 18 months Most recent security events: Elopement at [facility] 12/27/2021 20:57 - Patient eloped before treatment completed. - Patient with suicidal and/or homicidal ideations eloped. - Patient eloped with IV in place. Details: PATIENT LWBS Elopement at [facility] 12/18/2021 04:19 - Patient eloped before treatment completed. - Patient with suicidal and/or homicidal ideations eloped. - Patient eloped with IV in place. Details: PATIENT LEFT AMA Elopement at [facility] 10/23/2021 11:47 - Patient eloped before treatment completed. - Patient with suicidal and/or homicidal ideations eloped. - Patient eloped with IV in place. Details: PATIENT LWBS CRITERIA MET - 6 ED Visits in 6 Months - Group Notification [facility] - 2 Visits in 30 Days CARE PROVIDERS There are no care providers on record at this time. Loco has no Care Guidelines for this patient. E.D. VISIT COUNT (12 MO.) 7 [facility]. TOTAL 7 NOTE: Visits indicate total known visits. ED/C VISIT TRACKING (12 MO.) 02/17/2022 10:12 [facility] [place] TYPE: Emergency COMPLAINT: - SKIN PROBLEM 01/20/2022 08:31 [facility] [place] TYPE: Emergency COMPLAINT: - L RING FINGER INJURY DIAGNOSES: - Allergy status to other drugs, medicaments and biological substances - Caught, crushed, jammed, or pinched between moving objects, initial encounter - Allergy status to sulfonamides - Displaced fracture of distal phalanx of left ring finger, initial encounter for closed fracture - Unspecified asthma, uncomplicated - Nicotine dependence, unspecified, uncomplicated 12/27/2021 20:57 [facility] [place] TYPE: Emergency COMPLAINT: - SKIN PROBLEM 12/18/2021 04:19 [facility] [place] TYPE: Emergency COMPLAINT: - ALTERED LOC DIAGNOSES: - Allergy status to sulfonamides - Poisoning by fentanyl or fentanyl analogs, accidental (unintentional), initial encounter - Allergy status to other antibiotic agents - Nicotine dependence, unspecified, uncomplicated 10/25/2021 07:39 [facility] [place] TYPE: Emergency COMPLAINT: - R THUMB SWELLING DIAGNOSES: - Allergy status to other drugs, medicaments and biological substances - Cellulitis of right finger - Nicotine dependence, unspecified, uncomplicated - Other specified disorders of the skin and subcutaneous tissue 10/23/2021 11:47 [facility] [place] TYPE: Emergency COMPLAINT: - SKIN PRONLEM 10/22/2021 17:53 [facility] [place] TYPE: Emergency COMPLAINT: - RT THUMB PAIN INPATIENT VISIT TRACKING (12 MO.) No inpatient visits to display in this time frame [id number]
[2022-02-17] MEDS ORDERED: CLEOCIN HCL300 MG PO (11:16)
[2022-02-17] MEDS ORDERED: IBU600 MG PO (11:16)
[2022-02-18] MEDS ORDERED: IBU600 MG PO (11:00)
[2022-02-18] MEDS ORDERED: CLEOCIN HCL300 MG PO (11:00)
== END 2022-02-17 11:26 | disposition home or self-care (01) ==
LOC: ED 10:11
DX: J34.0 Abscess, furuncle and carbuncle of nose (principal); J45.909 Unspecified asthma, uncomplicated; Z88.2 Allergy status to sulfonamides; Z88.8 Allergy status to other drugs, medicaments and biological substances
CPT/HCPCS: 99282

== ENCOUNTER 2022-02-18 09:23 | Emergency (ER) | payer OTHER ==
[~2022-02-18] VITALS: Ht 167.6 cm; Wt 73.5 kg
[~2022-02-18 09:23] MED LIST changes: +CLEOCIN HCL300 MG PO; +IBU600 MG PO
--- OUTSIDE RECORDS SUMMARY | 2022-02-18 09:31 | XMS ---
PreManage Notification: FRED SKAGGS Security Purchase Analyst Events 3 event(s) in the past 18 months Most recent security events: Elopement at [facility] 12/27/2021 20:57 - Patient eloped before treatment completed. - Patient with suicidal and/or homicidal ideations eloped. - Patient eloped with IV in place. Details: PATIENT LWBS Elopement at [facility] 12/18/2021 04:19 - Patient eloped before treatment completed. - Patient with suicidal and/or homicidal ideations eloped. - Patient eloped with IV in place. Details: PATIENT LEFT AMA Elopement at [facility] 10/23/2021 11:47 - Patient eloped before treatment completed. - Patient with suicidal and/or homicidal ideations eloped. - Patient eloped with IV in place. Details: PATIENT LWBS CRITERIA MET - 6 ED Visits in 6 Months - Group Notification [facility] - 2 Visits in 30 Days CARE PROVIDERS There are no care providers on record at this time. Loco has no Care Guidelines for this patient. E.Cassandra. VISIT COUNT (12 MO.) 8 [facility]. TOTAL 8 NOTE: Visits indicate total known visits. ED/C VISIT TRACKING (12 MO.) 02/18/2022 09:23 [facility] [place] TYPE: Emergency COMPLAINT: - SKIN PROBLEM 02/17/2022 10:12 [facility] [place] TYPE: Emergency COMPLAINT: - SKIN PROBLEM 01/20/2022 08:31 [facility] [place] TYPE: Emergency COMPLAINT: - L RING FINGER INJURY DIAGNOSES: - Allergy status to sulfonamides - Displaced fracture of distal phalanx of left ring finger, initial encounter for closed fracture - Unspecified asthma, uncomplicated - Nicotine dependence, unspecified, uncomplicated - Allergy status to other drugs, medicaments and biological substances - Caught, crushed, jammed, or pinched between moving objects, initial encounter 12/27/2021 20:57 [facility] [place] TYPE: Emergency [...] visits to display in this time frame [id number]
[2022-02-18] MEDS ORDERED: IBU600 MG PO (11:00)
[2022-02-18] MEDS ORDERED: CLEOCIN HCL300 MG PO (11:00)
== END 2022-02-18 11:18 | disposition home or self-care (01) ==
LOC: ED 09:23
DX: L03.312 Cellulitis of back [any part except buttock and flank] (principal); M86.8X1 Other osteomyelitis, shoulder; J34.0 Abscess, furuncle and carbuncle of nose; J32.9 Chronic sinusitis, unspecified; J45.909 Unspecified asthma, uncomplicated; F17.200 Nicotine dependence, unspecified, uncomplicated; Z88.2 Allergy status to sulfonamides; Z88.8 Allergy status to other drugs, medicaments and biological substances
CPT/HCPCS: 99283; A9270

== ENCOUNTER 2023-12-30 18:05 | Emergency (ER) | payer OTHER ==
[~2023-12-30] VITALS: Ht 167.6 cm; Wt 96.1 kg
[~2023-12-30 18:05] MED LIST changes: +IBUPROFEN600 MG PO
--- OUTSIDE RECORDS SUMMARY | 2023-12-30 18:12 | XMS ---
PreManage Notification: FRED SKAGGS Security Unix Manager Events No recent Security Events currently on file CRITERIA MET - Group Notification CARE PROVIDERS -, [facility] Dentist: Statistical Financial Analyst Current [place] PHONE: [phone] -[place]- Dentist: Statistical Financial Analyst Current [facility] PHONE: [phone] [facility]/Center: Rural [facility] Current \F\ [facility] PHONE: [phone] Loco has no Care Guidelines for this patient. E.D. VISIT COUNT (12 MO.) 1 ZENIA Allen TOTAL 1 NOTE: Visits indicate total known visits. ED/UCC VISIT TRACKING (12 MO.) 12/30/2023 18:06 [facility] [place] TYPE: Emergency COMPLAINT: - ABDOMINAL PAIN INPATIENT VISIT TRACKING (12 MO.) No inpatient visits to display in this time frame [id number]
[2023-12-30 19:27] LABS: BILIRUBIN, URINE NEGATIVE (negative); BLOOD/HGB, URINE NEGATIVE (Negative); KETONE, URINE NEGATIVE (Negative); LEUK ESTERASE, URINE NEGATIVE (negative); NITRITE, URINE POSITIVE (negative)
[2023-12-30 19:35] LABS: BACTERIA, URINE 2+ /hpf (negative); CASTS, URINE NONE SEEN \\lpf; CRYSTALS, URINE NONE SEEN (0-1+); EPITHELIAL CELLS, URINE SQUAMOUS 2+ /lpf (0-1+); RED BLOOD CELLS, URINE 0-1 /hpf (0-5)
[2023-12-30 19:36] LABS: COLLECTION TYPE, URINE CLEAN CATCH; REFLEX CULTURE, URINE No (No)
[2023-12-30] MEDS ORDERED: MACROBID 100 M100 MG PO (20:39)
[2023-12-30] MEDS ORDERED: MAGNESIUM CITRATE 300 ML BTL PO ONE (20:45)
[2023-12-30] MEDS ORDERED: NITROFURANTOIN MONOHYD MACROCR 100 MG HOME.PACK PO ONE (20:45)
[2023-12-30 20:51] VITALS: BP 105/62
== END 2023-12-30 20:51 | disposition home or self-care (01) ==
LOC: ED 18:05
PROVIDERS: Emergency Medicine
DX: K59.00 Constipation, unspecified (principal); N39.0 Urinary tract infection, site not specified; J45.909 Unspecified asthma, uncomplicated; F17.200 Nicotine dependence, unspecified, uncomplicated; Z88.2 Allergy status to sulfonamides; Z88.1 Allergy status to other antibiotic agents; Z79.899 Other long term (current) drug therapy
CPT/HCPCS: 74018; 74019; 74022; 81001; 84703

== ENCOUNTER 2024-03-07 20:55 | Emergency (ER) | payer OTHER ==
[~2024-03-07] VITALS: Ht 167.6 cm; Wt 92.0 kg
[~2024-03-07 20:55] MED LIST changes: +MACROBID 100 M100 MG PO
--- OUTSIDE RECORDS SUMMARY | 2024-03-07 21:02 | XMS ---
PreManage Notification: FRED SKAGGS Security Clinical Documentation Consultant Events No recent Security Events currently on file CRITERIA MET - Group Notification CARE PROVIDERS -, [facility] Dentist: Cloud Automation Tester Current [place] PHONE: [phone] -[place]- Dentist: Cloud Automation Tester Current [facility] PHONE: [phone] [facility]/Center: Rural Health Current \F\ [facility] PHONE: [phone] Loco has no Care Guidelines for this patient. E.D. VISIT COUNT (12 MO.) 2 ZENIA Allen TOTAL 2 NOTE: Visits indicate total known visits. ED/UCC VISIT TRACKING (12 MO.) 03/07/2024 20:56 [facility] [place] TYPE: Emergency COMPLAINT: - PAIN URINATION/BLOOD 12/30/2023 18:06 [facility] [place] TYPE: Emergency COMPLAINT: - ABDOMINAL PAIN DIAGNOSES: - Allergy status to other antibiotic agents - Allergy status to sulfonamides - Constipation, unspecified - Nicotine dependence, unspecified, uncomplicated - Other chcf (current) drug therapy - Unspecified asthma, uncomplicated - Urinary tract infection, site not specified INPATIENT VISIT TRACKING (12 MO.) No inpatient visits to display in this time frame [id number]
[2024-03-07 21:22] LABS: BILIRUBIN, URINE NEGATIVE (negative); BLOOD/HGB, URINE MODERATE (Negative); KETONE, URINE NEGATIVE (Negative); LEUK ESTERASE, URINE TRACE (negative); NITRITE, URINE NEGATIVE (negative)
[2024-03-07 21:31] LABS: BACTERIA, URINE 1+ /hpf (negative); CRYSTALS, URINE AMORPHOUS PHOSPH 2+ (0-1+)
[2024-03-07 21:33] LABS: CASTS, URINE NONE SEEN \\lpf; EPITHELIAL CELLS, URINE SQUAMOUS 2+ /lpf (0-1+); REFLEX CULTURE, URINE No (No)
[2024-03-07 21:34] LABS: COLLECTION TYPE, URINE CLEAN CATCH
[2024-03-07] MEDS ORDERED: NITROFURANTOIN MONOHYD MACROCR 100 MG HOME.PACK PO ONE (21:45)
[2024-03-07 22:04] VITALS: BP 126/86
== END 2024-03-07 22:06 | disposition home or self-care (01) ==
LOC: ED 20:55
PROVIDERS: Family Medicine
DX: N39.0 Urinary tract infection, site not specified (principal); J45.909 Unspecified asthma, uncomplicated; F17.200 Nicotine dependence, unspecified, uncomplicated; Z88.2 Allergy status to sulfonamides; Z88.1 Allergy status to other antibiotic agents
CPT/HCPCS: 81001; 99283